=== PATIENT | male | born 1955 | race Caucasian/White ===

== ENCOUNTER 2016-07-10 07:54 | Emergency (ER) | payer OTHER ==
[~2016-07-10] VITALS: Ht 172.7 cm; Wt 92.0 kg
[~2016-07-10 07:54] MED LIST: PRLSR20 PO
[2016-07-10 07:59] VITALS: TEMP 36.4; Ht 172.7 cm; Wt 92.0 kg
[2016-07-10] MEDS ORDERED: ONDANSETRON INJ 2 MG/ML 2 ML VIAL IV STA (08:17)
[2016-07-10] MEDS ORDERED: MECLIZINE HCL 25 MG TAB PO STA (08:17)
[2016-07-10] MEDS ORDERED: SODIUM CHLORIDE 0.9% 1000ML 1,000 ML IV STA (08:17)
--- NOTE | 2016-07-10 08:31 | DIAGNOSTIC IMAGING REPORT ---
SINGLE VIEW CHEST CLINICAL HISTORY: Atypical chest pain. FINDINGS: An AP, portable, upright chest radiograph is obtained. No prior studies are available for comparison at the time of dictation. The examination is mildly degraded by portable technique and patient rotation. The cardiomediastinal silhouette is unremarkable. There are foci of atelectasis in the lower lobes. The lungs and pleural spaces are otherwise clear. No pneumothorax is seen. The bony thorax is grossly intact. IMPRESSION: No acute cardiopulmonary abnormality. Electronically signed by: Phil Rehman M.D. 07/10/2016 8:29 AM Dictated Date/Time: 07/10/2016 8:28 AM
[2016-07-10 08:39] LABS: BASO % 0.2 %; BASO ABS # 0.02 K/uL (0-0.2); COMPLETE YES; EOS % 0.2 %; HEMATOCRIT 46.6 % (42-52); IG% 0.1 %; LYMPH % 10.6 %; LYMPH ABS # 0.96 K/uL (1.2-3.4); MEAN CELL VOLUME 90.5 fL (80-100); MEAN CORPUSCULAR HEMOGLOBIN 32.2 pg (25-34); MEAN CORPUSCULAR HGB CONC 35.6 g/dl (32-36); MEAN PLATELET VOLUME 10.7 fL (7.4-10.4); MONO % 5.1 %; NEUT % 83.8 %; PLATELET COUNT 223 K/uL (130-400); RED BLOOD COUNT 5.15 M/uL (4.7-6.1); WHITE BLOOD COUNT 9.05 K/uL (4.8-10.8)
[2016-07-10 08:46] LABS: CALCIUM 9.1 mg/dl (8.5-10.1)
[2016-07-10 08:47] LABS: BUN/CREATININE RATIO 15.7 (10-20); CREATININE 1.1 mg/dl (0.60-1.40); POTASSIUM 4.1 mmol/L (3.5-5.1)
[2016-07-10] MEDS ORDERED: ACETAMINOPHEN 500 MG TAB PO ONE (08:54)
[2016-07-10 09:49] LABS: URINE APPEARANCE CLEAR (CLEAR); URINE BILIRUBIN NEG (NEG); URINE COLOR YELLOW; URINE NITRITE NEG (NEG); URINE PH 7.5 (4.5-7.5); URINE SPECIFIC GRAVITY 1.018 (1.000-1.030); UROBILINOGEN NEG (NEG)
[2016-07-10 10:07] LABS: MANUAL MICROSCOPIC REQUIRED? NO; REVIEW REQ? NO
[2016-07-10] MEDS ORDERED: ONDA4TAB46 PO (10:37)
[2016-07-10] MEDS ORDERED: MECL1TAB42 PO (10:37)
[2016-07-10 10:58] VITALS: BP 136/96; PULSE 56; O2SAT 94
--- NOTE | 2016-07-10 15:21 | EMERGENCY ROOM VISIT NOTE ---
ED Visit Note First contact with patient: 08:03 Chief Complaint: Vertigo. History of Present Illness: Mr. Arvizu is a 60 year-old white male who ambulates into the ED accompanied by his complaining of dizziness, nausea/ vomiting, left ear pain and chest discomfort. Patient denies any previous significant medical problems and has no risk factors for coronary artery disease. His family history is also clear of coronary artery disease. Patient reports a onset of pain that started approximately 3.5 hours ago he reports he rolled over in bed and he had an acute onset of dizziness associated with nausea and vomiting. Approximately 30 minutes after the onset of vomiting he reports he developed midsternal chest tightness. Since the onset of the symptoms they have been constant. His discomfort is nonradiating. He rates his discomfort 3/10. His pain worsens with episodes of vomiting. He has mild relief when he is not vomiting. He has not taken any medications for this discomfort prior to arrival at the hospital. And in generally he has not taken any medications for his symptoms. Currently he is still describing his ear pain as an achy sensation. He also rates this 3/10. His ear pain is nonradiating. He has not identified any aggravating or alleviating factors related severe pain. And once again he has not taken any medications for pain prior to arrival at the hospital. He describes his vomitus as bilious and he has not seen any blood in his vomit. He has noted an increase in vomiting and dizziness with head movement but has felt this is mildly resolved since arriving in the hospital. He denies fevers, chills, sweats, headaches, recent head trauma, skin eruptions , skin color changes, upper respiratory tract symptoms, hearing changes, ear drainage, wheezing, cough, shortness of breath, orthopnea, dependent edema, previous clots, claudication, cramping, recent surgery/inactivity/extended travel, abdominal pain, diarrhea, constipation, rectal bleeding, black/tarry stools, urinary symptoms, back/flank pain. Review of Systems: As noted above in history of present illness. All body systems were reviewed and found to be negative as noted above. Past Medical History: Melanoma, status post hernia repair. Current Medications: Prilosec. Allergies to Medications: Benadryl. Social History: Patient is currently employed; he feels safe in his home environment; he denies tobacco use and admits to alcohol use. Physical Examination: Vital Signs: Date Time Temp Pulse Resp B/P Pulse Ox O2 Delivery O2 Flow Rate FiO2 07/10/16 10:58 56 18 136/96 94 07/10/16 10:17 55 20 138/94 96 Room Air 07/10/16 09:18 76 15 153/101 95 Room Air 07/10/16 08:28 61 18 165/94 94 Room Air 07/10/16 07:59 36.4 70 16 160/109 97 Room Air GENERAL: 60-year-old male in moderate distress due to symptoms, nontoxic- appearing, afebrile and hemodynamically stable. NEUROLOGICAL: Awake, alert and oriented to person, place and time. Answering questions appropriately and following commands. Normal gait. Good hand eye coordination. SKIN: Warm, dry and pink. No soft tissue eruptions or trauma noted. HEENT: Atraumatic and normocephalic. No tenderness or erythema over the frontal or maxillary sinuses. External ears are nontender. Auditory canals are pink and patent. Bilateral tympanic membranes do not appear infected with no erythema or edema and have a normal light reflex. PERRLA. EOMI without nystagmus. Sclera white and conjunctiva pink without drainage. Oral cavity moist and pink. Pharynx is nonerythematous or edematous. Speech normal. No lymphadenopathy. Trachea midline. No jugular venous distention. No carotid bruits. BACK: No tenderness over the bony spine. Full range of motion of the cervical spine. No CVA tenderness. THORAX: Lungs sounds are clear to auscultation and equal bilaterally with symmetrical chest wall. No wheezing, rales or rhonchi. No crepitus, tenderness , subcutaneous air or deformities noted. HEART: Regular rate and rhythm. No gallops, rubs or murmurs are appreciated. No lifts, heaves or thrills. PMI is not displaced. ABDOMEN: Flat, soft and nontender. Positive bowel sounds in all quadrants. No guarding, rigidity or organomegaly. EXTREMITIES: Moves all extremities well on command and with purpose. All distal neurovascular statuses are intact and equal bilaterally. No dependent edema or calf tenderness/cords. ED Course: Patient is assessed as noted above. Laboratory Testing: Test 07/10/16 08:05 07/10/16 08:24 4/20/17 09:25 07/10/16 10:14 Range/Units White Blood Count 9.05 4.8-10.8 K/uL Red Blood Count 5.15 4.7-6.1 M/uL Hemoglobin 16.6 14.0-18.0 g/dL Hematocrit 46.6 42-52 % Mean Corpuscular Volume 90.5 80-100 fL Mean Corpuscular Hemoglobin 32.2 25-34 pg Mean Corpuscular Hemoglobin Concent 35.6 32-36 g/dl Platelet Count 223 130-400 K/uL Mean Platelet Volume 10.7 7.4-10.4 fL Neutrophils (%) (Auto) 83.8 % Lymphocytes (%) (Auto) 10.6 % Monocytes (%) (Auto) 5.1 % Eosinophils (%) (Auto) 0.2 % Basophils (%) (Auto) 0.2 % Neutrophils # (Auto) 7.58 1.4-6.5 K/uL Lymphocytes # (Auto) 0.96 1.2-3.4 K/uL Monocytes # (Auto) 0.46 0.11-0.59 K/uL Eosinophils # (Auto) 0.02 0-0.5 K/uL Basophils # (Auto) 0.02 0-0.2 K/uL RDW Standard Deviation 44.6 36.4-46.3 fL RDW Coefficient of Variation 13.3 11.5-14.5 % Immature Granulocyte % (Auto) 0.1 % Immature Granulocyte # (Auto) 0.01 0.00-0.02 K/uL Sodium Level 141 136-145 mmol/L Potassium Level 4.1 3.5-5.1 mmol/L Chloride Level 108 98-107 mmol/L Carbon Dioxide Level 28 21-32 mmol/L Anion Gap 5.0 3-11 mmol/L Blood Urea Nitrogen 17 7-18 mg/dl Creatinine 1.10 0.60-1.40 mg/dl Est Creatinine Clear Calc Drug Dose 78.6 ml/min Estimated GFR () 84.1 Estimated GFR (Non- 72.6 BUN/Creatinine Ratio 15.7 10-20 Random Glucose 105 70-99 mg/dl Calcium Level 9.1 8.5-10.1 mg/dl Total Bilirubin 0.5 0.2-1 mg/dl Direct Bilirubin 0.1 0-0.2 mg/dl Aspartate Amino Transf (AST/SGOT) 20 15-37 U/L Alanine Aminotransferase (ALT/SGPT) 27 12-78 U/L Alkaline Phosphatase 83 45-117 U/L Total Protein 7.3 6.4-8.2 gm/dl Albumin 4.0 3.4-5.0 gm/dl Lipase 281 73-393 U/L Bedside Troponin I 0.000 0.000 0-0.045 ng/ml Urine Color YELLOW Urine Appearance CLEAR CLEAR Urine pH 7.5 4.5-7.5 Urine Specific [place] 1.018 1.000-1.030 Urine Protein NEG NEG Urine Glucose (UA) NEG NEG Urine Ketones NEG NEG Urine Occult Blood NEG NEG Urine Nitrite NEG NEG Urine Bilirubin NEG NEG Urine Urobilinogen NEG NEG Urine Leukocyte Esterase NEG NEG EKG #1: 0804 and read by myself and reviewed with Dr. Nicole; shows sinus bradycardia ventricular rate of 54 bpm. Normal axis, intervals and complexes. No acute ST changes indicating ischemia, injury or infarction. This was compared to previous from December 2015 and showed no acute changes. EKG #2: 1013 and was read by myself and reviewed with Dr. Nicole; shows sinus bradycardia with a ventricular rate of 49 bpm. Normal axis, intervals and complexes. No acute ST changes indicating ischemia, injury or infarction. This was compared to the previous earlier today in no acute changes were noted. Chest X-Rays: Were read by myself and the radiologist showing no acute infiltrates, effusions or pneumothorax. Normal heart silhouette and bony anatomy. Patient was hydrated with normal saline and received 4 mg of Zofran IV and 50 mg of Meclizine by mouth for dizziness. Patient was reassessed multiple times during his stay in the emergency department. I did receive a phone call from the nursing staff that reported that the patient had a headache and requested Tylenol. A verbal order was given for 1 g of Tylenol by mouth for pain for the nurse. On my next reevaluation which was only approximately 5 minutes later patient reports his headache had resolved. Patient's case was reviewed with Dr. Nicole; he independently assessed the patient we agreed on diagnostic approach, treatment, disposition and plan. Patient was educated about tonight's findings and instructed on his treatment plan; he verbalizes understanding and agreement with this plan. Clinical Impression: Dizziness. Chest discomfort. Nausea/vomiting. Decision-Making: Initially my differential diagnosis I considered primary vertigo, acute coronary syndrome, pneumothorax, pneumonia, esophageal rupture, inner ear infection and other causes. Disposition: Patient discharged home in stable condition accompanied by his ; prior to departure he was reassessed and subjectively reported that he was pain and symptom-free. Plan: Patient was prescribed Antivert and Zofran for his symptoms and instructed on their use. Patient was encouraged to stay well-hydrated. Patient was encouraged to avoid alcohol use for the next 48 hours. Patient was encouraged to avoid rapid head movements. Patient was encouraged to follow-up with his family physician for recheck. Patient was encouraged return ED for worsening dizziness, worsening nausea/ vomiting, worsening chest discomfort, shortness of breath, fevers or any new/ concerning symptoms.
== END 2016-07-10 11:02 | disposition home or self-care (01) ==
LOC: C.EDB 07:56 → C.EDA 11:02
DX: R42 Dizziness and giddiness (principal); R07.89 Other chest pain; R11.2 Nausea with vomiting, unspecified; Z85.820 Personal history of malignant melanoma of skin; Z79.899 Other long term (current) drug therapy; Z88.8 Allergy status to other drugs, medicaments and biological substances